=== PATIENT | female | born 1985 | race Caucasian/White ===

== ENCOUNTER → 2024-01-16 | Outpatient (CLI) | payer BC, SELFPAY ==
[2024-01-21 00:07] LABS: Chlamydia By Nucleic Acid AMP Negative (Negative); Gonococcus By Nucleic Acid AMP Negative (Negative)
[2024-01-22 15:08] LABS: HPV APTIMA, High Risk Negative (Negative)
== END | disposition home or self-care (01) ==
PROVIDERS: Referring Provider Advanced Practice Midwife; Visit Provider Advanced Practice Midwife
DX: Z34.90 Encounter for supervision of normal pregnancy, unspecified, unspecified trimester (principal)
CPT/HCPCS: 87086; 87491; 87591; 87624; 88175; G0145

== ENCOUNTER → 2024-02-11 | Outpatient (CLI) | payer BC, SELFPAY ==
[2024-02-11 12:01] LABS: Absolute Lymphocyte Count 1.26 X10^3/uL (0.83-4.51); Absolute Neutrophil Count 8.4 X10^3/uL (2.0-7.7); Basophil# 0.06 X10^3/uL; Basophil% 0.6 % (0-1); Eosinophil# 0.19 X10^3/uL; Eosinophils% 1.8 % (0-5); Hematocrit 36.1 % (37-47); Hemoglobin 12.5 g/dL (12.0-15.0); Lymphocyte # 1.26 X10^3/ul (0.83-4.51); Lymphocyte % 11.9 % (19-41); Mean Corp Hgb Conc 34.6 g/dL (32-36); Mean Corpuscular Hgb 31.3 pg (27.0-32.0); Mean Corpuscular Volume 90.5 fL (81-99); Mean Platelet Vol. 8.3 fl (6.2-12.0); Monocyte# 0.66 X10^3/uL; Monocyte% 6.2 % (0-10); NRBC Flagged by Analyzer 0 % (0-5); Neutrophil # 8.35 X10^3/uL (2.7-7.7); Platelet Count 333 K/mm3 (150-450); RBC Distribution Width CV 12.2 % (11.6-14.6); RBC Distribution Width SD 40.2 fl (35.1-43.9); Red Blood Count 3.99 M/mm3 (4.2-5.4); White Blood Count 10.6 K/mm3 (4.4-11.0)
[2024-02-11 13:10] LABS: HIV - WCH Non-Reactive (Nonreactive); Hepatitis B Surface Antigen Non-Reactive (Nonreactive); Hepatitis C Antibody Non-Reactive (Nonreactive); Rubella IgG Reactive (Nonreactive); Syphilis Antibodies Non-reactive
== END | disposition home or self-care (01) ==
LOC: PAVLAB 11:41
PROVIDERS: Visit Provider Advanced Practice Midwife
DX: Z34.90 Encounter for supervision of normal pregnancy, unspecified, unspecified trimester (principal)
CPT/HCPCS: 36415; 85025; 86703; 86762; 86780; 86803; 86850; 86900; 86901; 87340

== ENCOUNTER → 2024-06-02 | Outpatient (CLI) | payer BC, SELFPAY ==
[2024-06-02 09:02] LABS: Absolute Lymphocyte Count 1.16 X10^3/uL (0.83-4.51); Absolute Neutrophil Count 9.5 X10^3/uL (2.0-7.7); Basophil# 0.05 X10^3/uL; Basophil% 0.4 % (0-1); Eosinophil# 0.19 X10^3/uL; Eosinophils% 1.6 % (0-5); Hematocrit 31.7 % (37-47); Hemoglobin 10.7 g/dL (12.0-15.0); Lymphocyte # 1.16 X10^3/ul (0.83-4.51); Lymphocyte % 9.9 % (19-41); Mean Corp Hgb Conc 33.8 g/dL (32-36); Mean Corpuscular Hgb 31.5 pg (27.0-32.0); Mean Corpuscular Volume 93.2 fL (81-99); Mean Platelet Vol. 8.3 fl (6.2-12.0); Monocyte# 0.62 X10^3/uL; Monocyte% 5.3 % (0-10); NRBC Flagged by Analyzer 0 % (0-5); Neutrophil # 9.51 X10^3/uL (2.7-7.7); Neutrophil % 81.1 % (47-70); Platelet Count 271 K/mm3 (150-450); RBC Distribution Width CV 12.3 % (11.6-14.6); RBC Distribution Width SD 42.2 fl (35.1-43.9); White Blood Count 11.7 K/mm3 (4.4-11.0)
[2024-06-02 09:22] LABS: Glucose Challenge Gest 1H 50g 108 mg/dL (70-140)
[2024-06-02 09:54] LABS: HIV - WCH Non-Reactive (Nonreactive); Syphilis Antibodies Non-reactive
== END | disposition home or self-care (01) ==
LOC: PAVLAB 08:29
PROVIDERS: Referring Provider Obstetrics & Gynecology; Visit Provider Obstetrics & Gynecology
DX: O09.92 Supervision of high risk pregnancy, unspecified, second trimester (principal); Z13.1 Encounter for screening for diabetes mellitus; Z3A.00 Weeks of gestation of pregnancy not specified
CPT/HCPCS: 36415; 82950; 85025; 86703; 86780

== ENCOUNTER → 2024-07-27 | Outpatient (CLI) | payer BC, SELFPAY | END | disposition home or self-care (01) | LOC: BWCLAB 11:23 | PROVIDERS: Referring Provider Obstetrics & Gynecology; Visit Provider Obstetrics & Gynecology | DX: O09.92 Supervision of high risk pregnancy, unspecified, second trimester (principal); Z3A.00 Weeks of gestation of pregnancy not specified | CPT/HCPCS: 87081 ==

== ENCOUNTER → 2024-08-03 | Outpatient (CLI) | payer BC, SELFPAY ==
[2024-08-03 12:45] LABS: Glucose Challenge Gest 1H 50g 126 mg/dL (70-140)
== END | disposition home or self-care (01) ==
LOC: BWCLAB 11:16
PROVIDERS: Referring Provider Obstetrics & Gynecology; Visit Provider Obstetrics & Gynecology
DX: Z13.1 Encounter for screening for diabetes mellitus (principal)
CPT/HCPCS: 36415; 82950

== ENCOUNTER 2024-08-07 07:45 | Outpatient (CLI) | payer BC, SELFPAY ==
[2024-08-07 08:02] VITALS: BP 120/63; PULSE 84
[2024-08-07 08:36] VITALS: BMI 31.4
[2024-08-07 08:59] LABS: ROM Internal Control Test YES-OK TO RESULT pt. (Internal QC); ROM Patient Test Negative (Negative); Record Kit Lot#, ROM+ K1972
--- NOTE | 2024-08-07 17:25 | OB.TRI.HP_ITS ---
HPI - General General Date of Service: 08/07/24 Chief Complaint: leaking of fluid. HPI Narrative MARICEL CHRISTOPHER, is a 38 F who presents at 37.5 with questionable leaking of fluid. active fetus. no vb/ctx. hx of cs with subsequent successful . Maternal Data Information SHERRI Calculator Estimated Delivery Date Method Current WG Current Estimate 08/23/24 LMP (Certain) 37w 5d PFSH PFSH Home Medications ?Medication ?Instructions ?Recorded ?Last Taken ?Type vits no.126-ferrous fum tab PO 01/10/24 Unknown History 28 mg iron-folic acid 800 mcg tablet (Classic ) Allergy/AdvReac Type Severity Reaction Status Date / Time No Known Allergies Allergy Verified 08/07/24 08:38 Family History Mother Breast cancer, Onset Age: 49 Thyroid disorder Father Heart disease Surgical History H/O section Social History adopted: No household members: spouse and children number of children: 2 current occupational status: employed 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 current occupational exposures/hazards: No pets and animals: No sexually active: Yes Smoking Status: Never smoker alcohol intake: current alcohol intake frequency: holidays/special occasions only details: Not while substance use type: does not use well-balanced diet: daily or most days caffeine: Yes Type: coffee eating out: 1-3 times/week during the past year weight has: increased > 10 lbs what type of physical activity do you participate in: walking and other details: Weekly Salsa Dance class frequency: 3-4 times per week duration: 30-45 minutes/day chyna/latter day: Islam seatbelt use: always do you feel safe at home: Yes additional social history: : [place] Joiner Source History 3 Elective abortions Hx Para 2 Spontaneous abortions Hx # Term Pregnancies Ectopic pregnancies Hx # Pregnancies Multiple births # of living children 2 Past Pregnancies Del. Date Name GA/Weeks Outcome Route Bth Weight Infant Gen Labor Lgth Anesthesia Del Locatn Provider FOB 06/25/17 Mae 39 live - full term 6lbs 12oz Female spinal AMILCAR Ceballos 10/09/19 [place] 40 live - full term 8lbs 13oz Female epidural AMILCAR Petty Delivery Date: 06/25/17 Last Updated by: Symone Acevedo RN C-sec d/t breech Delivery Date: 10/09/19 Last Updated by: Symone Acevedo RN Visit Details Expected Delivery Route/Plan patient counseled regarding risks/benefits of trial of labor versus repeat . ACOG/uptodate education given to patient. [] % likelihood of success per calculator TOLAC consent form signed: [] Labor Preferences- CB/BF classes: [] labor support person: [] labor intervention preferences: [] pain management options preferred: [] cut cord/dad catch: [] : [] PP control planned: [] discussed possible routes of delivery and associated risks: [] special requests: [] Plans Covid status: [] Flu vaccine: declined Tdap vaccine: given Rhogam: na LARC form signed: declined movement and labor precautions reviewed. Problem list reviewed and updated with the most current plan of care details and appropriate orders placed. Relevant counseling for the gestational age provided. Continue routine care and follow up unless otherwise noted in visit notes/problem list details OB Flowsheet Initial Weight: Not Recorded Date -?-?-?-?-?-?-?-?-?-?-?-?- EGA Weight BP Urine Prot -?-?-?-?-?-?-?-?-?-?-?-?- Glucose FHR FuHt Pres Dilation -?-?-?-?-?-?-?-?-?-?-?-?- Effaced St Visit Note 01/16/24 -?-?-?-?-?-?-?-?-?-?-?-?- 8w 4d 184 lb 2 oz 122/82 -?-?-?-?-?-?-?-?-?-?-?-?- 171 -?-?-?-?-?-?-?-?-?-?-?-?- KW- CRL cons wit h dates. Plans to . Would like to check with insurance for NIPT but considering. 02/11/24 -?-?-?-?-?-?-?-?-?-?-?-?- 12w 2d 183 lb 4 oz 118/74 Nega tive -?-?-?-?-?-?-?-?-?-?-?-?- Negative 164 -?-?-?--?-?-?-?-?-?-?-?-?- MH-No VB. Some m anageable nausea. PN labs and NIPT today. Brief US confirm FHT 03/10/24 -?-?-?-?-?-?-?-?-?-?-?-?- 16w 2d 187 lb 126/76 Negative -?-?-?-?-?-?-?-?-?-?-?-?- Negative 154 -?-?-?-?-?-?-?-?-?-?-?-?- KW- no vb/crampi ng. US scheduled. HAVING A BOY!! 04/07/24 -?-?-?-?-?-?-?-?--?-?-?-?- 20w 2d 191 lb 8 oz 130/70 Nega tive -?-?-?-?-?-?-?-?-?-?-?-?- Negative 160 -?-?-?-?-?-?-?-?-?-?-?-?- JV- no cramping or spotting. anatomy scan is normal. anterior placenta. 05/05/24 -?-?-?-?-?-?-?-?-?-?-?-?- 24w 2d 196 lb 110/67 Negative -?-?-?-?-?-?-?-?-?-?-?-?- Negative 150 24 -?-?-?-?-?-?-?-?-?-?-?-?- SM- no vb lof go od fm no regular ctx 06/02/24 -?-?-?-?-?-?-?-?-?-?-?-?- 28w 2d 201 lb 116/71 Negative -?--?-?-?-?-?-?-?-?-?-?-?- Negative 150 30 -?-?-?-?-?-?-?-?-?-?-?-?- SM- no vb lof go od fm n oregualr ctx cbc gct 06/17/24 -?-?-?-?-?-?-?-?-?-?-?-?- 30w 3d 203 lb 110/71 Negative -?-?-?-?-?-?-?-?-?-?-?-?- Negative 149 30 -?-?-?-?-?-?-?-?-?-?-?-?- JV- no lof, vagi nal bleeding, or dec fm. plan 40 week 1 day section if no labor by then. larc signed. 06/29/24 -?-?-?-?-?-?-?-?-?-?-?-?- 32w 1d 204 lb 120/67 Negative -?-?-?-?-?-?-?-?-?-?-?-?- Negative 140 32 -?-?-?-?-?-?-?-?-?-?-?-?- SM- no vb lof go od fm no regular ctx tdap today 07/13/24 -?-?-?-?-?-?-?-?-?-?-?-?- 34w 1d 210 lb 118/64 Negative -?-?-?-?-?-?-?-?-?-?-?-?- Negative 140 34 -?-?-?-?-?-?-?-?-?-?-?-?- SM - no vb lof g ood fm no regular ctx 07/27/24 -?-?-?-?-?-?-?-?-?-?-?--?- 36w 1d 211 lb 120/70 Negative -?-?-?-?-?-?-?-?-?-?-?-?- Negative 140 36 -?-?-?-?-?-?-?-?-?-?-?-?- SM- no vb lof go od fm no regular ctx 08/03/24 -?-?-?-?-?-?-?-?-?-?-?-?- 37w 1d 213 lb 103/65 -?-?-?-?-?-?-?-?-?-?-?-?- 145 Cephalic 0 -?-?-?-?-?-?-?-?-?-?-?-?- JV- pt redid her gct today due to LGA. we discussed what this would look like at time of delivery if abnormal. NST FHR Rate Baby A Baseline: 150 Variability:: Moderate Accelerations:: 15 x 15 Decelerations:: None NST Reactive:: Yes FHR Category:: Category I Uterine Activity:: irregular Assessment & Plan (1) No leakage of amniotic fluid into vagina: COMMENT: ROM plus negative, DOROTHEA at 16 per JV. PLAN: Plan Patient presents for triage evaluation secondary to rule out rupture. ultrasound performed by JV to demonstrate DOROTHEA 16 and vertex position. no change in cervical exam. FHT: Moderate variability reactive no decelerations category I tracing [place]: irregular Contractions Assessment and plan: Reactive NST, reassuring maternal and status patient discharged to home to follow-up in office. See problem list details for additional plan information. Charges/Coding Procedures Urinary/Genital 52xxx-59xxx: 62712-11 non-stress test Interp
== END 2024-08-07 11:30 | disposition home or self-care (01) ==
LOC: WPOUT 07:47 → WP 07:47
PROVIDERS: Referring Provider Registered Nurse; Visit Provider Registered Nurse
DX: Z04.89 Encounter for examination and observation for other specified reasons (principal); Z3A.37 37 weeks gestation of pregnancy
CPT/HCPCS: 59025; 59050; 76815; 84112; 99221; G0378

== ENCOUNTER 2024-08-18 05:24 | Inpatient (IN) | payer BC, SELFPAY ==
[2024-08-18] VITALS (20 sets, daily range): BP systolic 102–129; BP diastolic 53–79; PULSE 60–93; RESP 12–18; TEMP 36.3–36.9; O2SAT 90–98; BMI 30.8
[2024-08-18] MEDS: Lactated Ringers 1,000 ML 999 ML IV (05:40)
[2024-08-18] MEDS: Acetaminophen 500 MG Tablet 1000 MG PO ×4 (06:01→23:51)
[2024-08-18] MEDS: Sodium Citrate/Citric Acid 30 ML UDC PO (06:01)
[2024-08-18 06:05] LABS: Absolute Lymphocyte Count 1.54 X10^3/uL (0.83-4.51); Absolute Neutrophil Count 8.6 X10^3/uL (2.0-7.7); Basophil# 0.03 X10^3/uL; Basophil% 0.3 % (0-1); Eosinophil# 0.23 X10^3/uL; Eosinophils% 2.1 % (0-5); Hemoglobin 10.6 g/dL (12.0-15.0); Lymphocyte # 1.54 X10^3/ul (0.83-4.51); Lymphocyte % 13.9 % (19-41); Mean Corp Hgb Conc 35.3 g/dL (32-36); Mean Corpuscular Hgb 32.2 pg (27.0-32.0); Mean Corpuscular Volume 91.2 fL (81-99); Mean Platelet Vol. 8.9 fl (6.2-12.0); Monocyte% 4.5 % (0-10); NRBC Flagged by Analyzer 0 % (0-5); Neutrophil # 8.56 X10^3/uL (2.7-7.7); Neutrophil % 77.5 % (47-70); Platelet Count 279 K/mm3 (150-450); RBC Distribution Width CV 12.4 % (11.6-14.6); RBC Distribution Width SD 41.1 fl (35.1-43.9); Red Blood Count 3.29 M/mm3 (4.2-5.4); White Blood Count 11.1 K/mm3 (4.4-11.0)
--- NOTE | 2024-08-18 07:19 | HP.PCM_ITS ---
History and Physical Intake Vital Signs 08/10/2410:28 08/17/2413:04 Height 5 ft 9 in 5 ft 9 in Weight: 218 lb BMI 32.1 BP 135/72 H Intake Visit Reasons: ? 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 Is patient in pain?: No Allergies No Known Allergies Allergy (Verified 08/17/24 13:06) Medications ?Medication ?Instructions ?Recorded ?Confirmed ?Type vits no.126-ferrous fum tab PO 01/10/24 08/17/24 History 28 mg iron-folic acid 800 mcg tablet (Classic ) Last Menstrual Period: 11/17/23 Zika: Zika virus screening: Negative : No Have you fallen in the past year?: No PFSH PFSH Surgical History H/O section Family History Mother Breast cancer, Onset Age: 49 Thyroid disorderFather Heart disease Social History adopted: No household members: spouse and children number of children: 2 current occupational status: employed 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 current occupational exposures/hazards: No pets and animals: No sexually active: Yes Smoking Status: Never smoker alcohol intake: current alcohol intake frequency: holidays/special occasions only details: Not while substance use type: does not use well-balanced diet: daily or most days caffeine: Yes Type: coffee eating out: 1-3 times/week during the past year weight has: increased > 10 lbs what type of physical activity do you participate in: walking and other details: Weekly Salsa Dance class frequency: 3-4 times per week duration: 30-45 minutes/day chyna/sikhism: Adventism seatbelt use: always do you feel safe at home: Yes additional social history: : [employer] Joiner Source History 3 Elective abortions Hx Para 2 Spontaneous abortions Hx # Term Pregnancies Ectopic pregnancies Hx # Pregnancies Multiple births # of living children 2 Past Pregnancies Del. Date Name GA/Weeks Outcome Route Bth Weight Gen Labor [facility] FOB 06/25/17 [facility] 39 live - full term 6lbs 12oz Female spinal AMILCAR Ceballos 10/09/19 [place] 40 live - full term 8lbs 13oz Female epidural AMILCAR Petty Delivery Date: 06/25/17 Last Updated by: Symone Acevedo RN C-sec d/t breech Delivery Date: 10/09/19 Last Updated by: Symone Acevedo RN HPI ? and give soap/drinks csection 08/18 Details: MARICEL CHRISTOPHER is a 38 year old who presents for RLTCS she is AMA and has LGA. OB Visit SHERRI Calculator Estimated Delivery Date Method Current WG Current Estimate 08/23/24 LMP (Certain) 39w 1d Expected Delivery Route/Plan patient counseled regarding risks/benefits of trial of labor versus repeat . ACOG/uptodate education given to patient. [] % likelihood of success per calculator TOLAC consent form signed: [] Labor Preferences- CB/BF classes: [] labor support person: [] labor intervention preferences: [] pain management options preferred: [] cut cord/dad catch: [] : [] PP control planned: [] discussed possible routes of delivery and associated risks: [] special requests: [] Specific Issue/Plans Covid status: [] Flu vaccine: declined Tdap vaccine: given Rhogam: na LARC form signed: declined movement and labor precautions reviewed. Problem list reviewed and updated with the most current plan of care details and appropriate orders placed. Relevant counseling for the gestational age provided. Continue routine care and follow up unless otherwise noted in visit notes/problem list details Initial Weight: Not Recorded Date -?-?-?-?-?-?-?-?-?-?-?-?- EGA Weight BP Urine Prot -?-?-?-?-?-?-?-?-?-?-?-?- Glucose FHR FuHt Pres Dilation -?-?-?-?-?-?-?-?-?-?-?-?- Effaced St Visit Note 01/16/24-?-?-?-?-?-?-?-?-?-?-?-?- 8w 4d 184 lb 2 oz 122/82 -?-?-?-?-?-?-?-?-?-?-?-?- 171 -?-?-?-?-?-?-?-?-?-?-?-?- KW- CRL cons with dates. Plans to . Would like to check with insurance for NIPT but considering. 02/11/24-?-?-?-?-?-?-?-?-?-?-?-?- 12w 2d 183 lb 4 oz 118/74 Negative -?-?-?-?-?-?-?-?-?-?-?-?- Negative 164 -?-?-?-?-?-?-?-?-?-?-?-?- MH-No VB. Some manageable nausea. PN labs and NIPT today. Brief US confirm FHT 03/10/24-?-?-?-?-?-?-?-?-?-?-?-?- 16w 2d 187 lb 126/76 Negative -?-?-?-?-?-?-?-?-?-?-?-?- Negative 154 -?-?-?-?-?-?-?-?-?-?-?-?- KW- no vb/cramping. US scheduled. HAVING A BOY!! 04/07/24-?-?-?-?-?-?-?-?-?-?-?-?- 20w 2d 191 lb 8 oz 130/70 Negative -?-?-?-?-?-?-?-?-?-?-?-?- Negative 160 -?-?-?-?-?-?-?-?-?-?-?-?- JV- no cramping or spotting. anatomy scan is normal. anterior placenta. 05/05/24-?-?-?-?-?-?-?-?-?-?-?-?- 24w 2d 196 lb 110/67 Negative -?-?-?-?-?-?-?-?-?-?-?-?- Negative 150 24 -?-?-?-?-?-?-?-?-?-?-?-?- SM- no vb lof good fm no regular ctx 06/02/24-?--?-?-?-?-?-?-?-?-?-?-?- 28w 2d 201 lb 116/71 Negative -?-?-?-?-?-?-?-?-?-?-?-?- Negative 150 30 -?-?-?-?-?-?-?-?-?-?-?-?- SM- no vb lof good fm n oregualr ctx cbc gct 06/17/24-?-?-?-?-?-?-?-?-?-?-?-?- 30w 3d 203 lb 110/71 Negative -?-?-?-?-?-?-?-?-?-?-?-?- Negative 149 30 -?-?-?-?-?-?-?-?-?-?-?-?- JV- no lof, vaginal bleeding, or dec fm. plan 40 week 1 day section if no labor by then. larc signed. 06/29/24-?-?-?-?-?-?-?-?-?-?-?-?- 32w 1d 204 lb 120/67 Negative -?-?-?-?-?-?-?-?-?-?-?-?- Negative 140 32 -?-?-?-?-?-?-?-?-?-?-?-?- SM- no vb lof good fm no regular ctx tdap today 07/13/24-?-?-?-?-?-?-?-?-?-?-?-?- 34w 1d 210 lb 118/64 Negative -?-?-?-?-?-?-?-?-?-?-?-?- Negative 140 34 -?-?-?-?-?-?-?-?-?-?-?-?- SM - no vb lof good fm no regular ctx 07/27/24-?-?-?-?-?-?-?-?-?-?-?-?- 36w 1d 211 lb 120/70 Negative -?-?-?-?-?-?-?-?-?-?-?-?- Negative 140 36 -?-?-?-?-?-?-?-?-?-?-?-?- SM- no vb lof good fm no regular ctx 08/03/24-?-?-?-?-?-?-?-?-?-?-?-?- 37w 1d 213 lb 103/65 -?-?-?-?-?-?-?-?-?-?-?-?- 145 Cephalic 0-?-?-?-?-?-?-?-?-?-?-?-?- JV- pt redid her gct today due to LGA. we discussed what this would look like at time of delivery if abnormal. 08/10/24-?-?-?-?-?-?-?-?-?-?-?-?- 38w 1d 216 lb 132/85 Negative -?-?-?-?-?-?-?-?-?-?-?-?- Negative 140 Cephalic 1-?-?-?-?-?-?-?-?-?-?-?-?- SM- discussed moving up delivery due to LGA< patient requesting saturday due to ;Senior Living programs. not favorable for iol or membrane sweep at this time 08/17/24-?-?-?-?-?-?-?-?-?-?-?-?- 39w 1d 218 lb 135/72 Negative -?-?-?-?-?-?-?-?-?-?-?-?- Negative 140 Cephalic -?-?-?-?-?-?-?-?-?-?-?-?- SM- no vb lof good fm no reuglar ctx preop reviewed ACOG First Trimester First Trimester: Desire for , Alcohol, Tobacco Cessation, Illicit/Recreational Drug/Substance Use, Intimate Partner Violence, Barriers to care, Anticipated Course of Care, Use of Any medications, Sexual activity, Exercise, Dental Care, Sauna/Hot tub use, Seat Belt use, Childbirth classes/Hospital facilities, Travel, Indications for Ultrasound and Screening for Aneuploidy; Discussed Unstable Housing, Discussed Communication Barriers, Discussed Environmental/Work Hazards, Discussed Toxoplasmosis Precations and Discussed Second Trimester Second Trimester: Signs and Symptoms of Labor, Selecting a care provider, Reproductive Life Planning & Contreception, Care Planning, Depression/Anxiety and Intimate Partner Violence; Discussed Tobacco Cessation Third Trimester Third Trimester: Pain Management Plans, Labor support person(s), Immediate Larc, Signs and Symptoms of Preeclampsia, Feeding No , Education and Family Medical Leave or Disability Forms ROS Const Reports system reviewed and no additional complaints, except as documented Card Reports system reviewed and no additional complaints, except as documented Resp Reports system reviewed and no additional complaints, except as documented GI Reports system reviewed and no additional complaints, except as documented and Reports nausea Reports system reviewed and no additional complaints, except as documented Musc Reports system reviewed and no additional complaints, except as documented Exam Const General: cooperative, healthy appearing, comfortable and anxious HENMT Head: normal to inspection Nose: external nose normal Face and sinus: normal facial exam Neck Neck: normal visual inspection, full ROM and no lymphadenopathy Thyroid: thyroid normal Chest Chest palpation & inspection: normal inspection of the chest Resp Effort & Inspection: normal respiratory effort GI Inspection: normal to inspection Palpation: soft and other (gravid uterus) Other: infant vertex and appropriate size for gestational age Other: Cervical Exam: Extrem General: pedal edema Results POC Urinalysis 2 Dip (Clinic) Office Urine Glucose Negative Last Edit by Jayashree Ashley on 08/17/24 13:10 Office Urine Protein Negative Last Edit by Jayashree Ashley on 08/17/24 13:10 Coding Level of Care Code OB Routine Diagnoses No leakage of amniotic fluid into vagina Z03.71 Anemia affecting in third trimester O99.013 H/O section Z98.891 Multigravida of advanced maternal age in first trimester O09.521 Trimester: first trimester Supervision of high risk in second trimester O09.92 Trimester: second trimester 39 weeks gestation of Z3A.39 Weeks of gestation: 39 weeks Assessment and Plan Assessment and Plan (1) No leakage of amniotic fluid into vagina: Status: Acute Comment: ROM plus negative, DOROTHEA at 16 per JV. (2) Anemia affecting in third trimester: Status: Acute Comment: recommend iron supplement and fu cbc 4 weeks (3) H/O section: Status: Acute Comment: 2017 - breech *Successful 2019* (4) AMA (advanced maternal age) multigravida 35+: Status: Acute Qualifiers: Trimester: first trimester Qualified Code(s): O09.521 - Supervision of elderly multigravida, first trimester Comment: nipt low risk, growth US at 36 weeks discussed delivery by 40 weeks RLTCS scheduled for 08/24 @ 7:15 with JV but will plan IOL that day if favorable (5) Supervision of high-risk : Status: Acute Qualifiers: Trimester: second trimester Qualified Code(s): O09.92 - Supervision of high risk , unspecified, second trimester Comment: PRR, , SHERRI 08/23, boy, PC: Mae & Ivonne, : Kameron (6) : Status: Acute Qualifiers: Weeks of gestation: 39 weeks Qualified Code(s): Z3A.39 - 39 weeks gestation of Comment: GBS neg,NIPT low risk. Declines carrier. Normal anatomy and consistent SHERRI. Orders: Orders POC Urinalysis 2 Dip (Clinic) Today After discussing the patient's diagnosis and treatment plan options, patient wishes to proceed with surgical management. I have discussed with the patient the risks, benefits, and alternatives of the procedure which include but are not limited to risks of anesthesia, bleeding, infection, possible damage to bowel, bladder, or surrounding vasculature which could lead to additional surgery to evaluate any complications. Patient agrees to procedure and wishes to proceed. ACOG/uptodate references given for additional information regarding procedure.
[2024-08-18] MEDS: Cefazolin 2 GM in Syringe IV (07:28)
--- NOTE | 2024-08-18 08:05 | LES_PTH ---
PATIENT: MARICEL CHRISTOPHER LOC: [facility] U#:[id number] AGE/SX: 38/F ROOM: WP006 RE08/18/[address]: Dr. Courtney Woodruff MD : 1985 BED: 1 DIS: 08/20/2024 SPEC #: [id number] RECD: 08/18/24 11:05 STATUS: RALPH SURINDER #: [id number] ALDO: 08/18/24 08:[address]: Courtney Woodruff DEPT: SURGICAL PATHOLOGY RECD BY: Maria R Edwards ENTERED: 08/18/24 12:07 SP TYPE: Lesion OTHR DR: No Primary Care Phys Tissues: Skin of abdomen, NOS Procedures: Surgery Specimen Level IV HEADER OPERATION: Not noted PRE-OP DIAGNOSIS: Pathology TISSUE SUBMITTED: Mole removal MICROSCOPIC DIAGNOSIS Mole, excisional biopsy: Intradermal nevus. 08/19/2024 MICROSCOPIC DESCRIPTION Slides are reviewed. GROSS DESCRIPTION Received in fixative is one container labeled with the patient's name and designated Mole removal. The specimen consists of two irregular fragments of light pink-larsen soft tissue ranging in size from 0.5 to 1.2cm. Largest fragment is bisected and submitted along with the smaller fragment in one cassette. 08/18/2024 TC:1 CPT:02857
[2024-08-18 08:10] LABS: Syphilis Antibodies Non-reactive
[2024-08-18] MEDS: Oxytocin 15 Units/NS 250ml 15 UNITS/250 ML IV.SOLN 83 UNITS IV (08:45)
--- NOTE | 2024-08-18 08:49 | OP.PCM_ITS ---
Assessment & Plan (1) Anemia affecting in third trimester: COMMENT: recommend iron supplement and fu cbc 4 weeks (2) AMA (advanced maternal age) multigravida 35+: QUALIFIERS: Trimester: first trimester Qualified Code(s): O09.521 - Supervision of elderly multigravida, first trimester COMMENT: nipt low risk, growth US at 36 weeks discussed delivery by 40 weeks RLTCS scheduled for 08/24 @ 7:15 with JV but will plan IOL that day if favorable (3) Supervision of high-risk : QUALIFIERS: Trimester: second trimester Qualified Code(s): O09.92 - Supervision of high risk , unspecified, second trimester COMMENT: PRR, , SHERRI 08/23, boy, PC: Mae & Ivonne, : Kameron (4) : QUALIFIERS: Weeks of gestation: 39 weeks Qualified Code(s): Z3A.39 - 39 weeks gestation of COMMENT: GBS neg,NIPT low risk. Declines carrier. Normal anatomy and consistent SHERRI. (5) H/O section: COMMENT: 2017 - breech *Successful 2019* Maternal Data Information SHERRI Calculator Estimated Delivery Date Method Current WG Current Estimate 08/23/24 LMP (Certain) 39w 2d Final SHERRI Source: LMP Operative Report (OB) Cecarean Details Procedure Type: low transverse (and mole removal) Date of Procedure: 08/18/24 Procedure Start Time: 07:42 Procedure Stop Time: 08:26 Pre-Operative Diagnosis: Other Other Pre-Operative diagnosis: see a/p comments Post-Operative Diagnosis: Same as Pre-operative diagnosis Classification: Scheduled Type of Anesthesia: Spinal Special Medications: none Antibiotic Given: Ancef 2 grams IV x1 Drain: [place] to straight drain Estimated Blood Loss: 900 Fluids Replaced: crystalloid Findings Description of surgery: Spinal anesthesia was placed without difficulty. [place] catheter was placed. The patient was placed in the dorsal supine position with leftward tilt. Patient was prepped and draped in the normal sterile fashion. Pfannenstiel skin incision was made with the scalpel and carried through to the underlying layer of fascia with the scalpel. Fascia was nicked in the midline and the incision extended laterally. The rectus bellies were dissected off superiorly and inferiorly with out complication both sharply and bluntly. The peritoneum was entered digitally. The incision was stretched and a low transverse uterine incision was made with the scalpel. The 's head was delivered atraumatically followed by the anterior and posterior shoulders without complication the rest of the delivered. The cord was clamped and cut and the infant was handed off to awaiting nurse. The placenta was delivered spontaneously immediately following and was noted to be intact and have a three- vessel cord. The uterus was exteriorized cleared of all clots and debris, and the incision was closed in a single layer closure using #1 Monocryl. The ovaries and fallopian tubes were noted to be within normal limits. The uterus was returned to the maternal abdomen and gutters were cleared of all clots and debris. The peritoneum was closed with 3-0 Monocryl in a running fashion. Fascia was closed with 0 PDS in a running fashion. Subcutaneous tissue was copiously irrigated and the skin was closed with 3-0 Monocryl in a subcuticular fashion. 1 cm mole and 5 mm mole were both removed by elevating and excising at the base and sewing interrupted stitches of 3-0 rapide. Mepilex dressing was applied without complication. Patient was taken to recovery in stable condition. It was discussed with the patient that based on the clinical information obtained during this encounter, combined with her history, at this time I would recommend vaginal or cesareans for future deliveries if further pregnancies are desired. Surgical findings: nl uterus tubes ovartes Presentation: Vertex Amniotic Membrane Rupture Type: Artificial Amniotic Fluid Description: Clear Specimen collected: Yes Description of specimen(s) removed: placenta and baby Cord Vessel Description: 3 Vessels Delayed Cord Clamping: Yes Fuel Cell Engineer program or project administrator: Yes Mixer And Blender: Jhoan Early Tasks completed by information services assistant: Opening & closing, Retracting and Other (assisting in delivery of the infant) Additional bookkeeping assistant?: No Complications Complications: No Admit VTE Documentation VTE Present on Admission: No VTE Mechan Device Prophylaxis: SCD's Multi Select Codes Urinary/Genital Urinary/Genital CPT Codes: 20446 Partial removal of vulva (mole removal) and [address] [facility]
[2024-08-18] MEDS: Ketorolac 30 MG/ML Syringe IV ×3 (10:12→22:51)
[2024-08-18 11:04] LABS: Pathology Specimen OB SEE PATHOLOGY REPORT
[2024-08-18] MEDS: 0.9% Saline Lock 10 ML Syringe IV ×2 (16:15→22:50)
--- NOTE | 2024-08-18 22:11 | DCINST_ITS ---
Discharge Instructions Diet Discharge Diet: No restrictions DC O2, CPAP, BIPAP needs Additional Home O2 Discharge instructions: No Dressing / Incision Discharge Activity: May Not Drive (for 2 weeks or while taking narcotic pain medications.), May Shower and May Take a Tub Bath (in 7 days) May shower in (days): 0 May resume sexual activity in: 4-6 weeks Weight Bearing Status: Full weight bearing Lifting Restrictions: 20 pounds Dressing / Incision Call your doctor if your incision/area has: Continuous Slow Oozing, Sudden Increased Bleeding, Increased Pain/ Swelling, Increased Redness and Foul Smelling Discharge Call your doctor if you observe: Fever of 101 or Higher and Using more than 1 pad per hour (for 2 hours) Suture Line Care: Avoid Pulling/Pushing and Avoid Pinching/Bending Cleanse incision/area with: Soap & Water and Keep Dressing Clean & Dry Follow Up Care Please Follow Up With: Courtney Woodruff MD When: Call [phone] to make an appointment for an incision check in 1-2 weeks. Test Results: Test results from this visit will be discussed in further detail at your follow- up appointment, if applicable. Discharge Plan Admission Admit Date/Time: 08/18/24 05:24 Attending Provider: Courtney Woodruff Primary Care Provider: Care PhysicianMily Primary Discharge Orders/Prescriptions Prescriptions: New oxycodone-acetaminophen [Percocet] 5-325 mg tablet 1 tab PO Q6H PRN (Reason: pain) 7 Days Qty: 20 0RF naproxen 500 mg tablet 500 mg PO BID PRN PRN (Reason: Pain) Qty: 30 1RF hydrocodone-acetaminophen 5-325 mg tablet 1 tab PO Q6H PRN (Reason: pain) 5 Days Qty: 20 0RF No Action Classic 28 mg iron- 800 mcg tablet PO Referrals / Follow Up: Care PhysicianMily Primary [Primary Care Provider] - Disposition Disposition (needs filled in before D/C Order can be placed): Home, Self Care
--- NOTE | 2024-08-18 22:44 | NURSING ---
22:20 RN at bedside to assess pt's voiding. Pt states she feels too much pressure from measuring hat in toilet and took out the hat. Pt states she voided on toilet but didn't know for sure how much was voided. This RN to reassess void in 2-3 hours.
[2024-08-19] MEDS: 0.9% Saline Lock 10 ML Syringe IV (04:22)
[2024-08-19] MEDS: Ketorolac 30 MG/ML Syringe IV (04:22)
[2024-08-19 04:38] VITALS: BP 110/63; PULSE 67; RESP 16; TEMP 37.2; O2SAT 97
[2024-08-19 04:49] LABS: Hematocrit 28.5 % (37-47); Hemoglobin 9.8 g/dL (12.0-15.0); Mean Corp Hgb Conc 34.4 g/dL (32-36); Mean Corpuscular Hgb 32.1 pg (27.0-32.0); Mean Corpuscular Volume 93.4 fL (81-99); Mean Platelet Vol. 8.9 fl (6.2-12.0); Platelet Count 267 K/mm3 (150-450); RBC Distribution Width CV 12.5 % (11.6-14.6); RBC Distribution Width SD 42.5 fl (35.1-43.9); Red Blood Count 3.05 M/mm3 (4.2-5.4); White Blood Count 15.6 K/mm3 (4.4-11.0)
[2024-08-19] MEDS: Acetaminophen 500 MG Tablet 1000 MG PO ×3 (06:16→18:45)
--- NOTE | 2024-08-19 07:20 | NURSING ---
bedside report given to Gracia Gonzalez RN who is assuming care of pt at this time
--- NOTE | 2024-08-19 07:42 | PCM.PN.OB ---
Subjective Subjective Patient doing well without complaints. Tolerating PO. Ambulating and voiding without difficulty. Feeding well. Denies chest pain, shortness of breath, calf pain/swelling, fevers, chills, lightheadedness. Objective Data Objective Data Vital Signs: Vital Signs Temp Pulse Resp BP Pulse Ox O2 Del Method 98.9 F 67 16 110/63 97 Room Air 08/19/24 04:38 08/19/24 04:38 08/19/24 04:38 08/19/24 04:38 08/19/24 04:38 08/19/24 04:38 Oxygen Delivery Method Room Air Weight: 215 lb Body Mass Index (BMI) 30.8 Intake & Output: Intake and Output for Last 24 Hours 08/17/24 08/18/24 08/19/24 23:59 23:59 23:59 Intake Total 3070 / 3070 Output Total 2049 / 2049 Balance 1020 / 1020 Lab / Micro Data 08/19/24 04:30 Labs: Laboratory Results - last 24 hr 08/18/24 05:40: Syphilis Total Ab Non-reactive 08/19/24 04:30: WBC 15.6 H, RBC 3.05 L, Hgb 9.8 L, Hct 28.5 L, MCV 93.4, MCH 32.1 H, MCHC 34.4, RDW Std Deviation 42.5, RDW Coeff of Bee 12.5, Plt Count 267, MPV 8.9 Physical Exam Const alert and oriented x3 HEENT normocephalic Eyes PERRL Neck full ROM Resp normal respiratory effort GI soft to palpation GI Narrative: FF below U. Dressing dry and intact Palpation: tender other (appropriately) Assessment & Plan (1) [facility]: [facility] 9[facility] 11 [facility] (2) AMA (advanced maternal age) multigravida 35+: QUALIFIERS: Trimester: first trimester Qualified Code(s): O09.521 - Supervision of elderly multigravida, first trimester COMMENT: nipt low risk, growth US at 36 weeks discussed delivery by 40 weeks RLTCS scheduled for 08/24 @ 7:15 with JV but will plan IOL that day if favorable PLAN: Plan s/p LTCS PPD # 1 1. routine post care 2. breast feeding- support given 3. rh positive 4. rubella immune
[2024-08-19 09:20] VITALS: BP 110/58; PULSE 72; RESP 18; TEMP 37.1; O2SAT 98
[2024-08-19] MEDS: Senna/Docusate Sodium 1 Tablet PO (10:25)
[2024-08-19] MEDS: Naproxen 500 MG Tablet PO ×2 (10:25→18:44)
[2024-08-19 14:30] VITALS: BP 115/50; PULSE 84; RESP 15; TEMP 37.2; O2SAT 97
[2024-08-19 20:10] VITALS: BP 105/76; PULSE 79; RESP 16; TEMP 37.1; O2SAT 98
[2024-08-20] MEDS: Acetaminophen 500 MG Tablet 1000 MG PO ×2 (00:54→06:13)
[2024-08-20] MEDS: Naproxen 500 MG Tablet PO (02:03)
[2024-08-20 02:05] VITALS: BP 134/74; PULSE 81; RESP 16; TEMP 36.8; O2SAT 99
--- NOTE | 2024-08-20 07:09 | PCM.PN.OB ---
Subjective Subjective Patient doing well without complaints. Tolerating PO. Ambulating and voiding without difficulty. feeding well. Denies chest pain, shortness of breath, calf pain/swelling, fevers, chills, lightheadedness. Objective Data Objective Data Vital Signs: Vital Signs Temp Pulse Resp BP Pulse Ox O2 Del Method 98.2 F 81 16 134/74 H 99 Room Air 08/20/24 02:05 08/20/24 02:05 08/20/24 02:05 08/20/24 02:05 08/20/24 02:05 08/20/24 02:05 Oxygen Delivery Method Room Air Weight: 215 lb Body Mass Index (BMI) 30.8 Intake & Output: Intake and Output for Last 24 Hours 08/18/24 08/19/24 08/20/24 23:59 23:59 23:59 Intake Total 3070 / 3070 Output Total 2049 / 2049 Balance 1020 / 1020 Lab / Micro Data 08/19/24 04:30 ROS Constitutional Constitutional: Reports systems reviewed and no addt'l complaints, except as documented Cardiovascular Cardiovascular: Reports systems reviewed and no addt'l complaints, except as documented Respiratory/Chest Respiratory/Chest: Reports systems reviewed and no addt'l complaints, except as documented Gastrointestinal Gastrointestinal: Reports systems reviewed and no addt'l complaints, except as documented Physical Exam Const alert, oriented x3 and no apparent distress HEENT Head and Scalp: atraumatic Resp normal respiratory effort GI soft to palpation and non-tender Inspection: incision intact, healing well and drainage (none) Bimanual Exam - Vag & Uterus: uterus non-tender Uterus Palpation: uterus fundus firm (below Umbilicus) Assessment & Plan (1) delivery delivered: COMMENT: [facility] boy 39 bebeto 9lb 11 oz PLAN: Plan s/p LTCS PPD # 2 1. routine post care 2. breast feeding- support given 3. rh positive 4. rubella immune
--- NOTE | 2024-08-20 07:10 | PCM.DC.SUM ---
Providers Date of Admission: 08/18/24 Primary Care Physician: Mily Primary Care Phys Reason For Visit: SCHEDULED REPEAT C SECTION Diagnosis Discharge Diagnosis (1) delivery delivered: Status: Acute Code(s): O82 - Encounter for delivery without indication Plan s/p LTCS PPD # 2 1. routine post care 2. breast feeding- support given 3. rh positive 4. rubella immune Medications at Discharge Home Medications vits no.[id number]-ferrous fum 28 mg iron-folic acid 800 mcg tablet (Classic ) tab PO 01/10/24 hydrocodone-acetaminophen 5-325mg 5mg-325mg 1 tab PO Q6H PRN pain 5 days #20 tabs 08/18/24 naproxen 500 mg tablet 500 mg PO BID PRN PRN Pain #30 tabs 08/18/24 oxycodone-acetaminophen 5 mg-325 mg tablet (Percocet) 1 tab PO Q6H PRN pain 7 days #20 tabs 08/18/24 Hospital Course Summary of Care Provided Hospital Course: patient presented for [facility] and had an uncomplicated delivery. Postoperatively patient had return of bowel and bladder function and was ambulating well, tolerating adequate p.o., and was stable for discharge to home on postop day #2. Discharge medications naproxen and Percocet. Follow-up in office in 2 weeks for incision check in 6 weeks for visit. Routine post section diet and activity instructions. Weight / BMI Weight Weight: 215 lb Body Mass Index (BMI) 30.8 ABG / Lab / Microbiology Data 08/19/24 04:30 D/C Instructions Discharge Diet: No restrictions Discharge Activity: May Not Drive (for 2 weeks or while taking narcotic pain medications.), May Shower and May Take a Tub Bath (in 7 days) May shower in (days): 0 May resume sexual activity in: 4-6 weeks Weight Bearing Status: Full weight bearing Call your doctor if your incision/area has: Continuous Slow Oozing, Sudden Increased Bleeding, Increased Pain/ Swelling, Increased Redness and Foul Smelling Discharge Call your doctor if you observe: Fever of 101 or Higher and Using more than 1 pad per hour (for 2 hours) Suture Line Care: Avoid Pulling/Pushing and Avoid Pinching/Bending Cleanse incision/area with: Soap & Water and Keep Dressing Clean & Dry DC O2, CPAP, BIPAP Needs Additional Home O2 Discharge instructions: No DC home with Oxygen: No Please Follow Up With: Courtney Woodruff MD When: Call [phone] to make an appointment for an incision check in 1-2 weeks. Meaningful Use Info Meaningful Use Meaningful Use Diagnoses (Choose all that apply): None applicable Ischemic Stroke Statin Dosing Therapy Reference: STATIN DOSE THERAPY REFERENCE: * Patients > 75 years receive moderate or high dose statin therapy. * Patients 75 years or YOUNGER should receive HIGH intensity statin dose unless contraindicated. You will be required to document reason for non-treatment if statin daily dose does not meet guidelines. HIGH DOSE STATIN THERAPY DAILY Atorvastatin > than or = to 40 mg Rosuvastatin > than or = to 20 mg Amlodipine + Atorvastatin > than or = to 2.5/40 mg Ezetimibe + Simvastatin 10/80 mg Simvastatin 80mg Discharge Plan Admission Admit Date/Time: 08/18/24 05:24 Attending Provider: Courtney Woodruff Primary Care Provider: Care Physician,Mily Primary Discharge Orders/Prescriptions Prescriptions: New oxycodone-acetaminophen [Percocet] 5-325 mg tablet 1 tab PO Q6H PRN (Reason: pain) 7 Days Qty: 20 0RF naproxen 500 mg tablet 500 mg PO BID PRN PRN (Reason: Pain) Qty: 30 1RF hydrocodone-acetaminophen 5-325 mg tablet 1 tab PO Q6H PRN (Reason: pain) 5 Days Qty: 20 0RF No Action Classic 28 mg iron- 800 mcg tablet PO Referrals / Follow Up: Care Physician,Mily Primary [Primary Care Provider] - Disposition Disposition (needs filled in before D/C Order can be placed): Home, Self Care
[2024-08-20 08:36] VITALS: BP 114/65; PULSE 77; RESP 16; TEMP 36.4; O2SAT 98
--- NOTE | 2024-08-24 13:55 | NURSING ---
Follow up phone called attempted, no answer LVM.
== END 2024-08-20 09:40 | disposition home or self-care (01) | DRG 788 ==
PROVIDERS: Admitting Provider Obstetrics & Gynecology; Referring Provider Obstetrics & Gynecology; Visit Provider Obstetrics & Gynecology
PROC: 10D00Z1 Extraction of Products of Conception, Low, Open Approach (ICD-10-PCS; CPT 59514; principal; 2024-08-18 07:00)
DX: O34.211 Maternal care for low transverse scar from previous cesarean delivery (principal); D22.9 Melanocytic nevi, unspecified; O99.02 Anemia complicating childbirth; Z37.0 Single live birth; Z3A.39 39 weeks gestation of pregnancy; O99.892 Other specified diseases and conditions complicating childbirth; O36.63X0 Maternal care for excessive fetal growth, third trimester, not applicable or unspecified
CPT/HCPCS: 59025; 59050; 85025; 85027; 86780; 86850; 86900; 86901; 88305; 99221; J7120; A4216; G0378; J2405